=== PATIENT | male | born 1950 | race Two or more races ===

== ENCOUNTER 2022-05-18 16:16 | Emergency (ER) | payer OTHER, MEDICAID ==
[~2022-05-18] VITALS: Ht 172.7 cm; Wt 77.5 kg
[2022-05-18 16:30] VITALS: BP 154/94
== END 2022-05-19 00:35 | disposition left against medical advice (07) ==
LOC: ER 16:16
DX: M79.652 Pain in left thigh (principal); R22.42 Localized swelling, mass and lump, left lower limb; Z53.21 Procedure and treatment not carried out due to patient leaving prior to being seen by health care provider; W19.XXXA Unspecified fall, initial encounter; Y93.89 Activity, other specified; Y92.89 Other specified places as the place of occurrence of the external cause; Y99.8 Other external cause status